=== PATIENT | male | born 1985 | race Caucasian/White ===

== ENCOUNTER 2021-10-16 11:20 | Observation (INO) | payer BC, OTHER ==
[2021-10-16] MEDS ORDERED: HYDROmorphone 0.5 MG/0.5 ML Syringe IVPUSH ONE (11:55)
[2021-10-16] MEDS: Lactated Ringers 1,000 ML IV SCH ×2 (12:00→17:49)
[2021-10-16] MEDS ORDERED: Iopamidol 612 MG/ML 100 ML Bottle IVPUSH ONE (12:14)
[2021-10-16 12:24] LABS: PTT,PARTIAL THROMBOPLSTIN TIME 22.4 SEC (20.5-30.9)
[2021-10-16 12:28] LABS: CHLORIDE,CL 105 mmol/L (98-107); SODIUM,NA 140 mmol/L (136-145)
[2021-10-16 12:30] LABS: ANION GAP 14.8 mmol/L (5-15)
[2021-10-16] MEDS ORDERED: Ondansetron 4 MG/2 ML SDV IV PRN (13:58)
[2021-10-16] MEDS ORDERED: Ondansetron 4 MG Tab.DIS PO PRN (13:58)
[2021-10-16] MEDS ORDERED: HYDROmorphone 0.5 MG/0.5 ML Syringe IVPUSH PRN (13:58)
[2021-10-16] MEDS ORDERED: Acetaminophen 325 MG Tab PO PRN (13:58)
[2021-10-16] MEDS: Acetaminophen/HYDROcodone 325-5 MG Tab PO PRN ×2 (15:58→20:01)
[2021-10-16 16:15] LABS: CHLORIDE,CL 105 mmol/L (98-107); SODIUM,NA 137 mmol/L (136-145)
[2021-10-16 16:17] LABS: ANION GAP 15.2 mmol/L (5-15)
[2021-10-17] MEDS: Lactated Ringers 1,000 ML IV SCH ×2 (00:14→06:34)
[2021-10-17] MEDS: Acetaminophen/HYDROcodone 325-5 MG Tab PO PRN (07:38)
[2021-10-17 08:47] LABS: CHLORIDE,CL 104 mmol/L (98-107); SODIUM,NA 137 mmol/L (136-145)
== END 2021-10-17 11:00 | disposition home or self-care (01) ==
LOC: VM.ED 11:20 → VM.MS 13:49
PROVIDERS: ADMIT Physician Assistant Medical; ATTEND Physician Assistant Medical
DX: S39.91XA Unspecified injury of abdomen, initial encounter (principal); S52.612A Displaced fracture of left ulna styloid process, initial encounter for closed fracture; Z88.1 Allergy status to other antibiotic agents
CPT/HCPCS: 36415; 71260; 73130-LT; 74177; 80048; 81001; 84484; 85025; 85610; 85730; 86140; 93005; 93010; 96374; 99217; 99220; 99285-25; A9270-GY; G0378; J1170; J7120; Q9967